=== PATIENT | male | born 1975 | race African-American/Black ===

== ENCOUNTER → 2022-01-15 | Day surgery (SDC) | payer OTHER ==
[~2022-01-15] VITALS: Ht 182.9 cm; Wt 63.5 kg
== END | disposition home or self-care (01) ==
LOC: FAS 09:04
DX: Z12.11 Encounter for screening for malignant neoplasm of colon (principal); E78.1 Pure hyperglyceridemia; F17.210 Nicotine dependence, cigarettes, uncomplicated
CPT/HCPCS: G0121; J2250; J7120